=== PATIENT | female | born 1970 | race Caucasian/White ===

== ENCOUNTER 2020-12-27 04:42 | Day surgery (SDC) | payer OTHER ==
[2020-12-24 17:45] VITALS: BMI 24.1
[2020-12-27] MEDS ORDERED: LIDOCAINE 1%/EPI 1:100000 (20 ML MULTI DOSE VIAL) ONE (10:12)
[2020-12-27] MEDS ORDERED: GENTAMICIN SO4 80 MG/2 ML VIAL ONE ×2 (10:12→10:23)
[2020-12-27] MEDS ORDERED: BUPIVACAINE HCL/PF 0.5% (5MG/ML) 10 ML VIAL ONE (10:12)
[2020-12-27] MEDS ORDERED: BETAMET ACET/BETAMET NA PH 30 MG/5 ML VIAL ONE (10:15)
[2020-12-27] MEDS ORDERED: MIDAZOLAM HCL 2 MG/2 ML SINGLE DOSE VIAL ONE (10:37)
[2020-12-27] MEDS ORDERED: [UNRECOGNIZED DRUG - OTHER] INF ONE (10:43)
[2020-12-27] MEDS ORDERED: PROPOFOL 20 ML ONE ×4 (10:44→12:13)
[2020-12-27] MEDS ORDERED: ceFAZolin SODIUM 1 GM VIAL IVPB ONE (10:50)
[2020-12-27] MEDS ORDERED: ceFAZolin SODIUM 1 GM VIAL ONE (10:58)
[2020-12-27] MEDS ORDERED: LIDOCAINE HCL 2% JELLY (5 ML/TUBE) ONE (10:58)
[2020-12-27] MEDS ORDERED: ONDANSETRON 4 MG/2 ML VIAL ONE (10:58)
[2020-12-27] MEDS ORDERED: LIDOCAINE HCL/PF 2% SDV 5ML VIAL ONE (10:58)
[2020-12-27] MEDS ORDERED: DEXAMETHASONE SOD PHOSPHATE 4 MG/1 ML VIAL ONE (10:58)
[2020-12-27] MEDS ORDERED: GENTAMICIN SO4 80 MG/2 ML VIAL IVPB ONE (11:29)
[2020-12-27] MEDS ORDERED: BUPIVACAINE HCL/PF 0.5% (5 MG/ML) 30 ML VIAL IJ ONE ×2 (11:30→12:30)
[2020-12-27] MEDS ORDERED: BETAMET ACET/BETAMET NA PH 30 MG/5 ML VIAL IM ONE ×2 (11:31→12:31)
[2020-12-27] MEDS ORDERED: LIDOCAINE 1%/EPI 1:100000 (20 ML MULTI DOSE VIAL) IJ ONE ×2 (11:32→12:32)
[2020-12-27] MEDS ORDERED: KETOROLAC TROMETHAMINE 30 MG/1 ML VIAL ONE (12:32)
[2020-12-27 15:04] VITALS: BP 110/65; PULSE 58; TEMP 98.1
== END 2020-12-27 14:50 | disposition home or self-care (01) ==
LOC: JASU-SURG 04:42
PROVIDERS: ATTEND Podiatrist
PROC: 0QBN0ZZ Excision of Right Metatarsal, Open Approach (ICD-10-PCS; 2020-12-27)
PROC: 0QSN04Z Reposition Right Metatarsal with Internal Fixation Device, Open Approach (ICD-10-PCS; principal; 2020-12-27 10:00)
DX: M20.11 Hallux valgus (acquired), right foot (principal)
CPT/HCPCS: 73630-TC-RT-FY; 81025; 88304-TC; 88311-TC

== ENCOUNTER 2021-07-22 04:24 | Day surgery (SDC) | payer OTHER ==
[2021-07-18 11:45] VITALS: BMI 24.7
[2021-07-22] MEDS ORDERED: LIDOCAINE HCL 2% (20ML MULTI-DOSE VIAL) ONE (14:44)
[2021-07-22] MEDS ORDERED: ONDANSETRON 4 MG/2 ML VIAL IVPUSH PRN (17:20)
[2021-07-22] MEDS ORDERED: oxyCODONE HCL 5 MG TABLET PO PRN (17:20)
[2021-07-22] MEDS ORDERED: ACETAMINOPHEN 325 MG TABLET (FP) PO PRN (17:20)
[2021-07-22] MEDS ORDERED: LACTATED RINGERS SOLUTION 1,000 ML IV SCH (17:30)
[2021-07-22] MEDS ORDERED: LIDOCAINE HCL/PF 2% SDV 5ML VIAL ONE (17:34)
[2021-07-22] MEDS ORDERED: PROPOFOL 20 ML ONE ×2 (17:34)
[2021-07-22] MEDS ORDERED: MIDAZOLAM HCL 2 MG/2 ML SINGLE DOSE VIAL ONE (17:35)
[2021-07-22] MEDS ORDERED: ceFAZolin SODIUM 1 GM VIAL ONE (17:40)
[2021-07-22] MEDS ORDERED: SODIUM CHLORIDE 0.9% P/F 10 ML VIAL IJ ONE (17:40)
[2021-07-22] MEDS ORDERED: ceFAZolin SODIUM 1 GM VIAL IVPB ONE (17:45)
[2021-07-22] MEDS ORDERED: DEXAMETHASONE SOD PHOSPHATE 4 MG/1 ML VIAL ONE (18:23)
[2021-07-22] MEDS ORDERED: BACITRACIN 15 GM TUBE TOPICAL OINTMENT ONE (18:34)
[2021-07-22] MEDS ORDERED: LIDOCAINE HCL 2% (50ML VIAL) INF ONE (18:39)
[2021-07-22] MEDS ORDERED: BUPIVACAINE HCL/PF 0.25% (2.5MG/ML) 10 ML VIAL IJ ONE (18:40)
[2021-07-22 20:03] VITALS: BP 113/65; PULSE 51; TEMP 97.5
== END 2021-07-22 20:17 | disposition home or self-care (01) ==
LOC: JASU-SURG 04:24
PROVIDERS: ATTEND Podiatrist
PROC: 0YP90YZ Removal of Other Device from Right Lower Extremity, Open Approach (ICD-10-PCS; principal; 2021-07-22 17:00)
DX: T84.84XA Pain due to internal orthopedic prosthetic devices, implants and grafts, initial encounter (principal); Y79.8 Miscellaneous orthopedic devices associated with adverse incidents, not elsewhere classified; Y92.9 Unspecified place or not applicable
CPT/HCPCS: 76000-TC-FY; 81025; 88300-TC; 88304-TC; 88311-TC; 94760

== ENCOUNTER 2022-08-05 04:12 | Day surgery (SDC) | payer OTHER ==
[2022-07-31 09:45] VITALS: BMI 23.8
[2022-08-05] MEDS ORDERED: MIDAZOLAM HCL 2 MG/2 ML SINGLE DOSE VIAL ONE (12:11)
[2022-08-05] MEDS ORDERED: ceFAZolin SODIUM 1 GM VIAL IVPB ONE (12:52)
[2022-08-05] MEDS ORDERED: PROPOFOL 40 ML ONE (13:17)
[2022-08-05] MEDS ORDERED: oxyCODONE HCL 5 MG TABLET PO PRN (13:23)
[2022-08-05] MEDS ORDERED: IBUPROFEN 800 MG/8 ML IJ IVPB PRN (13:23)
[2022-08-05] MEDS ORDERED: IBUPROFEN 600 MG TABLET (FP) PO PRN (13:23)
[2022-08-05] MEDS ORDERED: ONDANSETRON 4 MG/2 ML VIAL IVPUSH PRN (13:23)
[2022-08-05] MEDS ORDERED: ELECTROLYTE-148 SOLN 1,000 ML IV SCH (13:30)
[2022-08-05] MEDS ORDERED: ACETAMINOPHEN 325 MG TABLET (FP) PO PRN (13:37)
[2022-08-05] MEDS ORDERED: LACTATED RINGERS SOLUTION 1,000 ML IV SCH (13:45)
[2022-08-05] MEDS ORDERED: oxyCODONE HCL 5 MG TABLET ONE (16:03)
[2022-08-05 17:20] VITALS: RESP 20; TEMP 98.4
[2022-08-05 17:22] VITALS: BP 134/75; PULSE 59
== END 2022-08-05 16:35 | disposition home or self-care (01) ==
LOC: JASU-SURG 04:12
PROVIDERS: ATTEND Obstetrics & Gynecology
PROC: 0U5B8ZZ Destruction of Endometrium, Via Natural or Artificial Opening Endoscopic (ICD-10-PCS; principal; 2022-08-05 11:00)
DX: N92.0 Excessive and frequent menstruation with regular cycle (principal); N80.03 Adenomyosis of the uterus
CPT/HCPCS: 94760

== ENCOUNTER 2023-07-28 04:09 | Day surgery (SDC) | payer OTHER ==
[2023-07-23 17:43] VITALS: BMI 23.2
[2023-07-28] MEDS ORDERED: ONDANSETRON 4 MG/2 ML VIAL IVPUSH PRN ×2 (09:35→12:51)
[2023-07-28] MEDS ORDERED: LACTATED RINGERS SOLUTION 1,000 ML IV SCH (09:45)
[2023-07-28] MEDS ORDERED: ONDANSETRON 4 MG/2 ML VIAL ONE (10:20)
[2023-07-28] MEDS ORDERED: MIDAZOLAM HCL 2 MG/2 ML SINGLE DOSE VIAL ONE (10:20)
[2023-07-28] MEDS ORDERED: LIDOCAINE HCL/PF 2% SDV 5ML VIAL ONE (10:20)
[2023-07-28] MEDS ORDERED: DEXAMETHASONE SOD PHOSPHATE 4 MG/1 ML VIAL ONE (10:20)
[2023-07-28] MEDS ORDERED: FENTANYL CITRATE/PF 50 MCG/ML VIAL ONE ×4 (10:20→13:21)
[2023-07-28] MEDS ORDERED: ceFAZolin SODIUM 1 GM VIAL ONE (10:20)
[2023-07-28] MEDS ORDERED: PROPOFOL 20 ML ONE (10:20)
[2023-07-28] MEDS ORDERED: ACETAMINOPHEN INJECTION 100 ML IVPB ONE (11:17)
[2023-07-28] MEDS: ceFAZolin SODIUM 1 GM VIAL IVPB ONE (11:50)
[2023-07-28] MEDS: CEFEPIME HCL 2 GM VIAL (RESTRICTED TO ID) IVPB ONE (11:50)
[2023-07-28] MEDS ORDERED: BACITRACIN ZINC 15 GM TUBE TOPICAL OINTMENT ONE (12:24)
[2023-07-28] MEDS: BACITRACIN ZINC 15 GM TUBE TOPICAL OINTMENT TP ONE (12:25)
[2023-07-28] MEDS ORDERED: IBUPROFEN 600 MG TABLET (FP) PO PRN (12:51)
[2023-07-28] MEDS ORDERED: IBUPROFEN 800 MG/8 ML IJ IVPB PRN (12:51)
[2023-07-28] MEDS ORDERED: oxyCODONE HCL 5 MG TABLET PO PRN (12:51)
[2023-07-28] MEDS ORDERED: ELECTROLYTE-148 SOLN 1,000 ML IV SCH (13:00)
[2023-07-28] MEDS: oxyCODONE HCL 5 MG TABLET PO PRN (14:55)
[2023-07-28] MEDS ORDERED: oxyCODONE HCL 5 MG TABLET ONE (14:56)
[2023-07-28 15:04] VITALS: RESP 20
[2023-07-28 15:44] VITALS: BP 118/68; PULSE 65; TEMP 97.8
== END 2023-07-28 15:45 | disposition home or self-care (01) ==
LOC: JASU-SURG 04:09
PROVIDERS: ATTEND Obstetrics & Gynecology
PROC: 0UBM0ZZ Excision of Vulva, Open Approach (ICD-10-PCS; principal; 2023-07-28 10:00)
DX: N90.60 Unspecified hypertrophy of vulva (principal); R10.2 Pelvic and perineal pain
CPT/HCPCS: 81025; 88305-TC; 94760; J0131